=== PATIENT | female | born 1935 | race Two or more races ===

== ENCOUNTER 2022-03-05 19:54 | Emergency (ER) | payer OTHER, MEDICAID ==
[2022-03-05] MEDS ORDERED: KETOROLAC TROMETH 30 MG/ML 1ML VIAL IV ONE ×2 (20:15→22:15)
[2022-03-05] MEDS ORDERED: fentaNYL CITRATE 100 MCG/2 ML VL IV ONE (20:15)
[2022-03-05 21:11] LABS: Hematocrit 44.9 % (36.0-46.0); Hemoglobin 14.8 g/dL (12.2-16.2); Mean Corpuscular Hemoglobin 30.2 pg (28.0-32.0); Mean Corpuscular Volume 91.5 fL (80.0-100.0); Red Blood Cells 4.91 10^6/uL (4.0-5.20); Red Cell Distribution Width 13.1 % (11.8-14.3); White Blood Cell 15.4 10^3/uL (4.4-10.8)
[2022-03-05 21:35] LABS: Basophils % (manual) 0 (0.0-2.0); Blast Cells 0; Eosinophils % (manual) 0 (0-7); Metamyelocytes % 0; Myelocytes % 0; Promyelocytes % 0; Reactive Lymphocytes 0
[2022-03-05 21:40] LABS: Albumin 3.4 g/dL (3.4-5.0); Anion Gap 12 (5-15); BUN/Creatinine Ratio 16.8; Blood Urea Nitrogen 19 mg/dL (7-18); Calcium 8.7 mg/dL (8.5-10.1); Carbon Dioxide 23 mmol/L (21-32); Chloride 101 mmol/L (98-107); GFR African American 59 mL/min; GFR Non-African American 48 mL/min; Glucose 282 mg/dL (74-106); Potassium 3.8 mmol/L (3.5-5.1); Sodium 136 mmol/L (136-145)
[2022-03-05 21:43] LABS: Alanine Aminotransferase 19 U/L (13-56); Alkaline Phosphatase 120 U/L (45-117); Aspartate Aminotransferase 22 U/L (15-37); Bilirubin, Total 0.6 mg/dL (0.2-1.0); Total Protein 7.2 g/dL (6.4-8.2)
[2022-03-05 22:10] LABS: Band Neutrophils % (manual) 12; Lymphocytes % (manual) 11 (10.0-50.0); Monocytes % (manual) 8 (0-12)
[2022-03-06 05:28] VITALS: BP 123/54
== END 2022-03-06 05:46 | disposition short-term general hospital (02) ==
LOC: ER 19:54 → EDBD 19:54 → ER 03-06 05:46
DX: S32.591A Other specified fracture of right pubis, initial encounter for closed fracture (principal); E11.9 Type 2 diabetes mellitus without complications; Z90.710 Acquired absence of both cervix and uterus; Z95.0 Presence of cardiac pacemaker; W19.XXXA Unspecified fall, initial encounter; Y93.89 Activity, other specified; Y92.89 Other specified places as the place of occurrence of the external cause; Y99.8 Other external cause status
CPT/HCPCS: 36415; 71045; 72192; 80053; 83880; 84484; 85007; 85027; 93005; 96374; 96376; 99285; J1885; J3010